=== PATIENT | female | born 1970 | race Two or more races ===

== ENCOUNTER 2024-12-27 18:31 | Inpatient (IN) | payer MEDICAID, OTHER ==
[~2024-12-27] VITALS: Ht 152.4 cm; Wt 62.4 kg
[2024-12-27] MEDS ORDERED: SODIUM CHLORIDE 0.9% 1,000 ML IVB ONE (19:00)
--- NOTE | 2024-12-27 19:02 | ED.PDOC ---
FILE CLERK HPI Comments 54 year old female presents to the ED with a chief complaint of vaginal pain onset 10 days. Patient states she began experiencing small "bumps" on bilateral vagina labia, noticed bumps have grown in size, are painful, notices blood when she wipes. Patient is also experiencing diarrhea and suprapubic pain radiates to low back. Denies any PMHx as well as nausea, vomiting, fevers, chills, headache, dizziness. No other associated symptoms, modifiers, recent injuries or sick contacts present at this time. 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: No Pertinent COST 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 ENGINEER History Family History Family History: No family hx of HTN Social History Smoker: Non-Smoker Alcohol: Rarely Drugs: Denies Drug Use Lives In: Home Constitutional: denies: chills, diaphoresis, fatigue, fever, malaise, sweats, weakness, others EENTM: denies: blurred vision, double vision, ear bleeding, ear discharge, ear drainage, ear pain, ear ringing, eye pain, eye redness, hearing loss, mouth pain, mouth swelling, nasal discharge, nose bleeding, nose congestion, nose pain, photophobia, tearing, throat pain, throat swelling, voice changes, others Respiratory: denies: cough, hemoptysis, orthopnea, SOB at rest, shortness of breath, SOB with excertion, stridor, wheezing, others Cardiovascular: denies: chest pain, dizzy spells, diaphoresis, Dyspnea on exertion, edema, irregular heart beat, left arm pain, lightheadedness, palpitations, PND, syncope, others Gastrointestinal: reports: abdominal pain, diarrhea; denies: abdomen distended, blood streaked bowels, constipated, dysphagia, difficulty swallowing, hematemesis, melena, nausea, poor appetite, poor fluid intake, rectal bleeding, rectal pain, vomiting, others Genitourinary: reports: pain, others (vaginal bumps); denies: abnormal vagina bleeding, burning, dyspareunia, dysuria, flank pain, frequency, hematuria, incontinence, , vagina discharge, urgency Neurological: denies: dizziness, fainting, headache, left sided numbness, left sided weakness, numbness, paresthesia, pre-existing deficit, right sided numbness, right sided weakness, seizure, speech problems, tingling, tremors, weakness, others Musculoskeletal: denies: back pain, gout, joint pain, joint swelling, muscle pain, muscle stiffness, neck pain, others Integumetry: denies: bruises, change in color, change in hair/nails, dryness, laceration, lesions, lumps, rash, wounds, others Allergic/Immunocompromised: denies: Difficulty Healing, Frequent Infections, Hives, Itching, others Hematologic/Lymphatic: denies: anemia, blood clots, easy bleeding, easy bruising, swollen glands, others Endocrine: denies: excessive hunger, excessive sweating, excessive thirst, excessive urination, flushing, intolerance to cold, intolerance to heat, unexplained weight gain, unexplained weight loss, others Psychiatric: denies: anxiety, bipolar disorder, depression, hopeless, panic disorder, schizophrenia, sleepless, suicidal, others All Other Systems: Reviewed and Negative Physical Exam General Appearance: Normal HEENT: Normal ENT Inspection, Pharynx Normal, TMs Normal Neck: Full Range of Motion, Non-Tender, Normal, Normal Inspection Respiratory: Chest Non-Tender, Lungs Clear, No Accessory Muscle Use, No Respiratory Distress, Normal Breath Sounds Cardiovascular: No Edema, No JVD, No Murmur, No Gallop, Normal Peripheral Pulses, Regular Rate/Rhythm Breast Exam: Deferred Gastrointestinal: No Organomegaly, Non Tender, No Pulsatile Mass, Normal Bowel Sounds, Soft Genitalia: Deferred Pelvic: Deferred Rectal: Deferred Extremities: No calf tenderness, Normal capillary refill, Normal inspection, Normal range of motion, Non-tender, No pedal edema Musculoskeletal : Apperance: Normal Neurologic: Alert, environmental planner II-XII nml as Tested, No Motor Deficits, Normal Affect, Normal Mood, No Sensory Deficits Cerebellar Function: Normal Reflexes: Normal Skin: Dry, Normal Color, Warm Lymphatic: No Adenopathy Was a procedure done? Was a procedure done?: No Differential Diagnosis (COST REDUCTION ENGINEER) Mass / Lesion: Vaginitis - Bacterial, Vaginitis - Candidal Vaginal Discharge: UTI, Vaginitis - Atrophic, Vaginitis - Bacterial, Vaginitis - Candidal, Vaginitis - Contact X-Ray, Labs, Meds, VS Vital Signs Date Time Temp Pulse Resp B/P (MAP) Pulse Ox O2 Delivery O2 Flow Rate FiO2 12/27/24 18:33 98.1 93 18 142/77 97 98.1 Lab Test 12/27/24 19:04 12/27/24 18:37 Range/Units White Blood Count 9.8 4.4-10.8 10^3/uL Red Blood Count 5.01 4.0-5.20 10^6/uL Hemoglobin 13.8 12.2-16.2 g/dL Hematocrit 40.7 36.0-46.0 % Mean Corpuscular Volume 81.4 80.0-100.0 fL Mean Corpuscular Hemoglobin 27.5 L 28.0-32.0 pg Mean Corpuscular Hemoglobin Concent 33.8 32.0-36.0 g/dL Red Cell Distribution Width 12.5 11.8-14.3 % Platelet Count 398 140-450 10^3/uL Mean Platelet Volume 8.1 6.9-10.8 fL Neutrophils (%) (Auto) 69.3 37.0-80.0 % Lymphocytes (%) (Auto) 25.5 10.0-50.0 % Monocytes (%) (Auto) 3.8 0.0-12.0 % Eosinophils (%) (Auto) 0.9 0.0-7.0 % Basophils (%) (Auto) 0.5 0.0-2.0 % Neutrophils # (Auto) 6.8 1.6-8.6 10 ^3/uL Lymphocytes # (Auto) 2.5 0.4-5.4 10 ^3/uL Monocytes # (Auto) 0.4 0-1.3 10 ^3/uL Eosinophils # (Auto) 0.1 0-0.8 10 ^3/uL Basophils # (Auto) 0.1 0-0.2 10 ^3/uL Nucleated Red Blood Cells 0.2 % Sodium Level 136 136-145 mmol/L Potassium Level 3.6 3.5-5.1 mmol/L Chloride Level 99 98-107 mmol/L Carbon Dioxide Level 28 20-31 mmol/L Anion Gap 9 5-15 Blood Urea Nitrogen 17 9-23 mg/dL Creatinine 0.88 0.550-1.02 mg/dL Glomerular Filtration Rate Calc 78 >90 mL/min BUN/Creatinine Ratio 19.3 10.0-20.0 Serum Glucose 375 H 74-106 mg/dL Calcium Level 10.5 H 8.7-10.4 mg/dL Urine Color Light-yellow Yellow Urine Clarity Clear Clear Urine pH 5.5 5.0-9.0 Urine Specific [place] 1.030 1.001-1.035 Urine Protein Negative Negative Urine Ketones 1+ H Negative Urine Blood Negative Negative /uL Urine Nitrite 2+ H Negative Urine Bilirubin Negative Negative Urine Urobilinogen Normal Negative mg/dL Urine Leukocyte Esterase Negative Negative /uL Urine RBC <1 0 - 4 /hpf Urine Microscopic WBC 5 0-5 /HPF Urine Squamous Epithelial Cells Few <5 /hpf Urine Bacteria Few H None Seen /hpf Urine Glucose 4+ H Normal mg/dL Time of 1ST Reevaluation: 19:23 Reevaluation 1ST: Unchanged Patient Education/Counseling: Diagnosis, Treatment, Prognosis Family Education/Counseling: No Family Present Additional Information The following tests were ordered, and results were reviewed by me: UA, CBC, BMP, CT AB PEL WITH IV CON I reviewed and agreed with the following test results read by other providers: CT AB PEL WITH IV CON I discussed treatment and results with medical personnel and: patient Comprehensive systems review obtained and negative except for what is stated in the HPI. Departure 1 Departure Time of Disposition: 22:11 Impression: Primary Impression: New onset type 2 diabetes mellitus Additional Impressions: Hyperglycemia due to diabetes mellitus Anna vaginitis Disposition: ADMITTED INPATIENT Admit to: Med Surg Condition: Guarded Discharged With: Self Comments Lower Abdominal Pain and Vaginal Discharge with Hyperglycemia Chief Complaint: Lower abdominal pain and vaginal discharge for 10 days History of Present Illness: Patient is a 54-year-old female presenting to the Emergency Department with complaints of lower abdominal pain and vaginal discomfort with thick discharge for the past 10 days. She reports tenderness in the right lower quadrant. The patient denies any known past medical history. During her ED evaluation, she was found to be significantly hyperglycemic with a blood glucose of 375 mg/dL, suggesting previously undiagnosed diabetes mellitus. Review of Systems: Constitutional: No fever, chills, or weight changes reported. Gastrointestinal: Positive for lower abdominal pain, particularly in the right lower quadrant. Genitourinary: Positive for vaginal discomfort and thick vaginal discharge for 10 days. Endocrine: No reported history of diabetes, polyuria, or polydipsia, though pat ient presents with significant hyperglycemia. All other systems: Negative or not assessed during this encounter. Physical Exam: Abdomen: Tenderness noted in the right lower quadrant. Genitourinary: Vaginal examination reveals thick discharge consistent with vaginitis. Lab Results: Blood glucose: 375 mg/dL (significantly elevated) Other laboratory results reported as unremarkable. Imaging and Other Relevant Results: CT of abdomen and pelvis: No acute pathology identified. Medical Decision Making: Summary Statement: 54-year-old female presenting with lower abdominal pain, vaginal discharge, and incidentally found severe hyperglycemia, likely representing new-onset diabetes mellitus with secondary vaginal candidiasis. Problem List: 1. Hyperglycemia (blood glucose 375 mg/dL), 2. Vaginal discharge/discomfort consistent with vaginitis, 3. Right lower quadrant abdominal pain. Differential Diagnosis: For hyperglycemia: Type 2 diabetes mellitus, stress- induced hyperglycemia. For vaginal symptoms: Candidal vaginitis (most likely given hyperglycemia), bacterial vaginosis, trichomoniasis. For abdominal pain: Appendicitis (ruled out by CT), ovarian pathology, diverticulitis, inflammatory bowel disease. ED Course: Patient received IV fluid hydration. Diflucan was administered for presumed candidal vaginitis. CT abdomen/pelvis was obtained to evaluate abdominal pain, showing no acute pathology. Decision made to admit for blood glucose management and further workup of newly diagnosed diabetes. Assessment and Plan: 1. Hyperglycemia (Blood glucose 375 mg/dL) - Likely new-onset Type 2 Diabetes Mellitus: - Admit to medicine service for glycemic control and diabetes management - Initiate insulin therapy per hospital protocol - Obtain HbA1c, basic metabolic panel, and lipid profile - Endocrinology consultation for long-term diabetes management - Diabetes education prior to discharge 2. Vaginal Candidiasis: - Likely secondary to hyperglycemia - Administered Diflucan in ED - Consider topical antifungal therapy if symptoms persist - Reassess symptoms after glucose control is achieved 3. Right Lower Quadrant Abdominal Pain: - CT abdomen/pelvis negative for acute pathology - Monitor symptoms during admission - Pain control as needed - Consider gynecologic consultation if symptoms persist after treatment of vaginitis Additional Notes: Patient admitted for management of newly diagnosed diabetes and vaginitis Billing Information: ICD-10: E11.9 - Type 2 diabetes mellitus without complications ICD-10: B37.3 - Candidiasis of vulva and vagina ICD-10: R10.31 - Right lower quadrant abdominal pain Critical Care Note Critical Care Time?: No Stability Stability form required: No Heart Score Heart Score: Heart Score Response (Comments) Value History N/A 0 EKG N/A 0 Age N/A 0 Risk Factors N/A 0 Troponin N/A 0 Total 0 I personally scribed for IRENA ORTEZ MD ([email or web address]) on 12/27/24 at 19:01. Electronically submitted by Nikia Gan ([email or web address]). I personally scribed for IRENA ORTEZ MD ([email or web address]) on 12/27/24 at 19:03. Electronically submitted by Nikia Gan ([email or web address]). IRENA ORTEZ MD Dec 27, 2024 19:01
[2024-12-27 19:25] LABS: Hematocrit 40.7 % (36.0-46.0); Hemoglobin 13.8 g/dL (12.2-16.2); Mean Corpuscular Hemoglobin 27.5 pg (28.0-32.0); Mean Corpuscular Volume 81.4 fL (80.0-100.0); Nucleated Red Blood Cells % 0.2 %
[2024-12-27 19:47] LABS: Chloride 99 mmol/L (98-107); Potassium 3.6 mmol/L (3.5-5.1); Sodium 136 mmol/L (136-145)
[2024-12-27 19:48] LABS: Anion Gap 9 (5-15); Carbon Dioxide 28 mmol/L (20-31)
[2024-12-27 19:54] LABS: BUN/Creatinine Ratio 19.3 (10.0-20.0); Blood Urea Nitrogen 17 mg/dL (9-23)
[2024-12-27 20:01] LABS: Calcium 10.5 mg/dL (8.7-10.4); Glucose 375 mg/dL (74-106)
[2024-12-27 20:41] LABS: Urine Protein, UAD Negative (Negative)
[2024-12-27] MEDS ORDERED: IOHEXOL 300 MG/ML 100ML BOTTLE IJ ONE (21:01)
--- NOTE | 2024-12-27 21:30 | DVH ---
Exam: CT CT AB PEL WITH IV CON ONLY History: RLQ pain Comparison Study: None TECHNIQUE: A digital manager economic image was obtained. During the uneventful, intravenous administration of c ontrast material, multislice data acquisition was obtained through the abdomen and pelvis. The data s et was subsequently reconstructed into multiplanar reformats. RADIATION DOSE: CTDI vol 11.24 mGy. DLP 576.75 mGy.cm Findings: Evaluation is degraded by motion artifact. Liver: Unremarkable. Spleen: Unremarkable. Pancreas: Unremarkable. Gallbladder: Unremarkable. Adrenals: Unremarkable Kidneys: Unremarkable. Pelvic Viscera: Unremarkable. Vasculature: Unremarkable. Retroperitoneum: Unremarkable. Bowel: No bowel obstruction. No CT evidence of appendicitis. Musculoskeletal: Unremarkable. Soft tissues: Prominent right inguinal nodes measuring up to 12 mm short axis. Lungs: Basilar atelectasis. Impression: 1. No acute abdominopelvic abnormality identified. 2. Incidental findings as detailed.
[2024-12-27] MEDS ORDERED: FLUCONAZOLE 100 MG TAB PO ONE (22:15)
[2024-12-27] MEDS ORDERED: SODIUM CHLORIDE 0.9% 1,000 ML IV ONE (22:15)
[2024-12-27 22:33] VITALS: BP 115/69; PULSE 102; RESP 14; TEMP 98.1; O2SAT 97
== END 2024-12-27 23:51 | disposition left against medical advice (07) | DRG 531 ==
LOC: ER 18:31 → OVERFLOW 23:50
PROVIDERS: ADMIT Nurse Practitioner; ATTEND Nurse Practitioner
DX: B37.31 Acute candidiasis of vulva and vagina (principal); E11.65 Type 2 diabetes mellitus with hyperglycemia; Z53.29 Procedure and treatment not carried out because of patient's decision for other reasons
CPT/HCPCS: 36415; 74177; 80048; 81001; 85025; G0378